=== PATIENT | male | born 1950 | race American Indian/Alaskan Native ===

== ENCOUNTER 2016-07-09 10:23 | Emergency (ER) | payer MEDICARE ==
[2016-07-09 10:23] VITALS: PULSE 91; BMI 26.6
--- NOTE | 2016-07-09 11:03 | C.PDOC ---
History Of Present Illness The patient, a 65y/o male, presents to the ED via EMS after being sent from [facility] for evaluation of confusion and a possible fall noted at 0830 today. As per assisted, patient was found sitting on the floor and appeared confused with unknown onset. Patient was seen on 06/03 for AMS, Acute renal insufficiency and Anemia. Additional information limited due to patient's clinical condition, poor historian. - HPI Chief Complaint (Nursing): Trauma History Per: Patient, EMS, Other (assisted) Onset/Duration Of Symptoms: Unknown Injury Occurred (Timing): Just Before Arrival Additional History Per: EMS, Intermediate Past Medical History Reviewed: Historical Data, Nursing Documentation, Vital Signs Vital Signs: Last Vital Signs Temp 97.3 F L 07/09/16 10:41 Pulse 79 07/09/16 13:25 Resp 18 07/09/16 13:25 BP 120/80 07/09/16 13:25 Pulse Ox 100 07/09/16 13:25 - Medical History PMH: Anemia, Arthritis, Atrial Fibrillation, Cardia Arrhythmia (ATRIAL FIBRILLATION UNSPECIFIED), CHF, Colonic Polyps, Diabetes, Fractures (left foot) , HTN, Peripheral Edema, Chronic Kidney Disease, Chronic Pain (Leg) Surgical History: CABG, Pacemaker - [facility] Procedures CLOSED ENDOSCOPIC BIOPSY OF LARGE INTESTINE (12/08/14) CORONAR ARTERIOGR-2 CATH (10/15/01) ENDOSC POLYPECTOMY OF LG INTEST (12/08/14) ESOPHAGOGASTRODUODENOSCOPY [EGD] W/CLOSED BIOPSY (12/08/14) EXCISION OF STOMACH, ENDO, DIAGN (07/19/15) INITIAL INSERT OF SING CHAMB DEV, RATE RESPONSIVE (10/15/01) INITIAL INSERT OF TRANS. LEADS INTO VENTRICLE (10/15/01) INJECT/INFUSE NEC (12/08/14) LEFT HEART CARDIAC CATH (10/15/01) LT HEART ANGIOCARDIOGRAM (10/15/01) MAGNETIC RESONANCE IMAGING OF SPINAL CANAL (10/15/01) PACKED CELL TRANSFUSION (12/08/14) TRANSFUSE NONAUT RED BLOOD CELLS IN PERIPH VEIN, PERC (12/02/15) VACCINATION NEC (12/23/13) Family History: States: Unknown Family Hx - Social History Hx Tobacco Use: No Hx Alcohol Use: No Hx Substance Use: No - Immunization History Hx Tetanus Toxoid Vaccination: No Hx Influenza Vaccination: No Hx Pneumococcal Vaccination: Yes Review Of Systems Except As Marked, All Systems Reviewed And Found Negative. Constitutional: Negative for: Fever, Chills Neurological: Positive for: Confusion Physical Exam - Physical Exam Appears: Non-toxic, No Acute Distress, Chronically Ill, Other (+sleepy) Skin: Normal Color, Warm, Dry Head: Atraumatic, Normacephalic Eye(s): bilateral: Normal Inspection, EOMI Oral Mucosa: Moist Neck: Supple Chest: Symmetrical, No Deformity, No Tenderness Cardiovascular: Rhythm Regular, No Murmur Respiratory: Normal Breath Sounds, No Rales, No Rhonchi, No Wheezing Back: Normal Inspection Extremity: Normal ROM, Capillary Refill (less than 2 seconds) Neurological/Psych: Oriented x3, Other (slow to respond to questioning, but appropriate. no focal deficits ) Gait: Unable To Assess ED Course And Treatment - Laboratory Results Result Diagrams: 07/09/16 11:57 07/09/16 11:57 ECG: Interpreted By Me, Viewed By Me ECG Rhythm: Atrial Fibrillation ECG Interpretation: No Changes From Prior (06/08/16) Interpretation Of ECG: Atrial fibrillation with premarture ventricular or abberantly conducted complexes. No changes from prior EKG on 06/08/16. Rate From EC O2 Sat by Pulse Oximetry: 100 (on RA) - Radiology CXR: Interpreted by Me CXR Interpretation: Yes: No Acute Disease, Cardiomegaly - Other Rad PELVIS X-Ray: Interpreted by Me (NEG) Progress Note: labs, CT Cervical Spine, CT Head, CXR, EKG ordered and reviewed. Reevaluation Time: 14:47 Reassessment Condition: Unchanged (NO ACUTE FINDINGS. WILL DC) Disposition Counseled Patient/Family Regarding: Studies Performed, Diagnosis, Need For Followup - Disposition Referrals: YOUR,PMD [Other] Disposition: HOME/ ROUTINE Disposition Time: 14:47 Condition: GOOD Instructions: Fall Prevention for Older Adults (ED) - Clinical Impression Clinical Impression: Minor head injury - Scribe Statement The provider has reviewed the documentation as recorded by the Scribe (Amaris Castillo) Provider Attestation: All medical record entries made by the Scribe were at my direction and personally dictated by me. I have reviewed the chart and agree that the record accurately reflects my personal performance of the history, physical exam, medical decision making, and the department course for this patient. I have also personally directed, reviewed, and agree with the discharge instructions and disposition.
--- NOTE | 2016-07-09 11:10 | C.PDOC ---
Time Seen by Provider: 07/09/16 11:01 Chief Complaint (Nursing): Trauma Past Medical History Vital Signs: Last Vital Signs Temp 97.3 F L 07/09/16 10:41 Pulse 110 H 07/09/16 10:41 Resp 16 07/09/16 10:41 BP 114/75 07/09/16 10:41 Pulse Ox 100 07/09/16 11:03 - Medical History PMH: Anemia, Arthritis, Atrial Fibrillation, Cardia Arrhythmia (ATRIAL FIBRILLATION UNSPECIFIED), CHF, Colonic Polyps, Diabetes, Fractures (left foot) , HTN, Peripheral Edema, Chronic Kidney Disease, Chronic Pain (Leg) Surgical History: CABG, Pacemaker - [facility] Procedures CLOSED ENDOSCOPIC BIOPSY OF LARGE INTESTINE (12/08/14) CORONAR ARTERIOGR-2 CATH (10/15/01) ENDOSC POLYPECTOMY OF LG INTEST (12/08/14) ESOPHAGOGASTRODUODENOSCOPY [EGD] W/CLOSED BIOPSY (12/08/14) EXCISION OF STOMACH, ENDO, DIAGN (07/19/15) INITIAL INSERT OF SING CHAMB DEV, RATE RESPONSIVE (10/15/01) INITIAL INSERT OF TRANS. LEADS INTO VENTRICLE (10/15/01) INJECT/INFUSE NEC (12/08/14) LEFT HEART CARDIAC CATH (10/15/01) LT HEART ANGIOCARDIOGRAM (10/15/01) MAGNETIC RESONANCE IMAGING OF SPINAL CANAL (10/15/01) PACKED CELL TRANSFUSION (12/08/14) TRANSFUSE NONAUT RED BLOOD CELLS IN PERIPH VEIN, PERC (12/02/15) VACCINATION NEC (12/23/13) Family History: States: Unknown Family Hx - Social History Hx Tobacco Use: No Hx Alcohol Use: No Hx Substance Use: No - Immunization History Hx Tetanus Toxoid Vaccination: No Hx Influenza Vaccination: No Hx Pneumococcal Vaccination: Yes ED Course And Treatment O2 Sat by Pulse Oximetry: 100 Progress - Data Reviewed Data Reviewed: Lab, Diagnostic imaging, EKG, Old records
[2016-07-09 12:08] LABS: VENOUS BLOOD GAS BASE EXCESS 0.1 mmol/L (0.0-2.0); VENOUS BLOOD GAS PCO2 39 mmHg (40-60); VENOUS BLOOD PH 7.41 (7.32-7.43)
[2016-07-09 12:10] LABS: HEMATOCRIT 27.6 % (35.0-51.0); MEAN CORPUSCULAR HEMOGLOBIN 23.3 pg (27.0-31.0); MEAN CORPUSCULAR HGB CONC 31.3 g/dL (33.0-37.0); MEAN PLATELET VOLUME 9.6 fL (7.2-11.7); RED CELL DISTRIBUTION WIDTH 17.1 % (11.5-14.5); WHITE BLOOD COUNT 4.9 K/uL (4.8-10.8)
[2016-07-09 12:14] LABS: POTASSIUM 4.3 mmol/L (3.6-5.2)
[2016-07-09 12:16] LABS: ALB/GLOB RATIO 0.9 (1.0-2.1); BILIRUBIN,TOTAL 0.6 mg/dL (0.2-1.3); TOTAL PROTEIN 8.6 g/dL (6.3-8.3)
[2016-07-09 12:17] LABS: CALCIUM 9.6 mg/dl (8.6-10.4)
[2016-07-09 12:18] LABS: MEAN CELL VOLUME 74.3 fL (80.0-94.0)
[2016-07-09 12:22] LABS: RBC URINE 1 /hpf (0-3); URINE BACTERIA RARE (<OCC); URINE BILIRUBIN NEGATIVE (NEGATIVE); URINE BLOOD NEGATIVE (NEGATIVE); URINE COLOR Yellow (YELLOW); URINE GLUCOSE (UA) NORMAL (Normal); URINE KETONE NEGATIVE (NEGATIVE); URINE LEUKOCYTE ESTERASE NEG Leu/uL (Negative); URINE PROTEIN NEGATIVE (NEGATIVE); URINE UROBILINOGEN NORMAL mg/dL (0.2-1.0); WBC URINE 1 /hpf (0-5)
[2016-07-09 12:26] LABS: INR 1.2
[2016-07-09 13:27] VITALS: RESP 18
--- NOTE | 2016-07-09 13:38 | CT ---
PROCEDURE: CT HEAD WITHOUT CONTRAST. HISTORY: TRAUMA, AMS COMPARISON: Comparison made with CT scan brain 06/03/[address] scan 12/06/2015. TECHNIQUE: Axial computed tomography images were obtained through the head/brain without intravenous contrast. Radiation dose: Total exam DLP = 981.84 mGy-cm. FINDINGS: HEMORRHAGE: No acute parenchymal, subarachnoid nor extra-axial hemorrhage. BRAIN: Re- demonstrated is old left occipital pole infarct with slight ex vacuo dilatation of the left occipital horn. There may also be some minimal chronic periventricular white matter ischemic changes. Mild vascular calcifications. VENTRICLES: Unremarkable. No hydrocephalus. CALVARIUM: Re- demonstrated is a mixed attenuation lesion involving the sphenoid bone particularly the sphenoid sinus as well as the sella turcica of uncertain etiology. This could represent fibrous dysplasia however Paget disease not excluded. Infiltrating neoplasm would be less likely given relative stable appearance likely although cannot be completely excluded. PARANASAL SINUSES: Unremarkable as visualized. No significant inflammatory changes. MASTOID AIR CELLS: Unremarkable as visualized. No inflammatory changes. OTHER FINDINGS: None. IMPRESSION: No acute intracranial hemorrhage. Stable chronic left occipital pole infarct. There appears to be some minimal chronic periventricular white matter ischemic changes. Re- demonstrated is a somewhat mixed sclerotic and lytic appearing lesion involving the sphenoid bone on including the sphenoid sinus and sella turcica which is of uncertain etiology. This could represent chronic fibrous dysplasia or possibly Paget's disease level appears stable from prior study. Clinical correlation is recommended.
[2016-07-09 13:49] LABS: EOS # 0.4 K/uL (0.0-0.7); LYMPH # 0.9 K/uL (1.0-4.3); MONO # 0.5 K/uL (0.0-0.8)
--- NOTE | 2016-07-09 14:09 | CT ---
PROCEDURE: CT Cervical Spine without contrast HISTORY: <TRAUMA AMS> COMPARISON: None available. TECHNIQUE: Axial computed tomography images were obtained of the cervical spine without the use of intravenous contrast. Coronal and sagittal reformatted images were created and reviewed. Radiation dose: Total exam DLP = 445.47 mGy-cm. FINDINGS: VERTEBRAE: No current study reveals no evidence of acute compression fractures nor retropulsed fragments. Vertebral bodies exhibit normal stature and alignment. DISCS/SPINAL CANAL/NEURAL FORAMINA: Multilevel degenerative spondylosis of the cervical spine. Changes include varying degrees of disc space narrowing more so along the posterior disc margins with small osteophytic ridge disc bulge complex is contiguous with slightly overgrown uncovertebral joints. Facets also mildly hypertrophic. . Changes result in mild canal narrowing at the C5-C6 level. . Adequate at the remaining levels. Exit foramina appear narrowed bilaterally at the C4-C5, C5-C6 right greater than left and C6-C7 levels. Mild right-sided foraminal narrowing C3-C4 level. PARASPINAL SOFT TISSUES: The prevertebral and paraspinal soft tissues unremarkable. Calcified atherosclerotic plaque changes both carotid bifurcations left greater than right. Consider followup carotid Doppler study. There is a small low-attenuation focus anterior superior aspect left lobe thyroid gland possibly representing a colloid cyst or nodule. Thyroid ultrasound recommended. OTHER FINDINGS: Scarring changes right lung apex. Consider followup nonemergent CT scan of the chest. In situ right IJ central venous line. IMPRESSION: No acute fractures. Multilevel degenerative spondylosis. See above discussion for additional findings details and recommendations
--- NOTE | 2016-07-09 14:29 | RAD ---
PROCEDURE: Radiographs of the pelvis. HISTORY: TRAUMA COMPARISON: None. FINDINGS: BONES: Pelvic Bones: Unremarkable. Hips: Grossly unremarkable. JOINTS: Sacroiliac Joints: Unremarkable. Pubic Symphysis: Unremarkable. OTHER FINDINGS: None. IMPRESSION: Unremarkable radiographs of the pelvis.
--- NOTE | 2016-07-09 14:35 | RAD ---
PROCEDURE: CHEST RADIOGRAPH, 1 VIEW HISTORY: AMS, TRAUMA COMPARISON: 06/03/2016 FINDINGS: LUNGS: Clear. PLEURA: No pneumothorax or pleural fluid seen. CARDIOVASCULAR: Cardiomegaly. Status post CABG. OSSEOUS STRUCTURES: No significant abnormalities. VISUALIZED UPPER ABDOMEN: Normal. OTHER FINDINGS: Right MediPort catheter in place. IMPRESSION: No interval change.
[2016-07-09 16:23] VITALS: BP 105/63; PULSE 73; TEMP 97.8; O2SAT 98
--- NOTE | 2016-07-10 20:17 | CARD ---
APPROVED REPORT EKG Measurement Heart [id number] <Conclusion> Atrial fibrillation with premature ventricular or aberrantly conducted complexes Left axis deviation Low voltage QRS Nonspecific T wave abnormality Prolonged QT Abnormal ECG
== END 2016-07-09 16:16 | disposition home or self-care (01) ==
LOC: C.ER 10:23
DX: S09.90XA Unspecified injury of head, initial encounter (principal); X58.XXXA Exposure to other specified factors, initial encounter